=== PATIENT | female | born 1980 | race Asian ===

== ENCOUNTER 2016-12-04 16:40 | Emergency (ER) | payer OTHER ==
[2016-12-04 16:46] VITALS: PULSE 58; RESP 16; TEMP 99.7; O2SAT 97
--- NOTE | 2016-12-04 17:19 | CPEKG ---
Heart Rate: 56 RR Interval: 1071 P-R Interval: 148 QRSD Interval: 94 QT Interval: 504 QTC Interval: 487 P Cro[place]: 34 QRS [place]: -12 T Wave [place]: 19 EKG Severity - BORDERLINE ECG - EKG Impression: SINUS RHYTHM EKG Impression: VENTRICULAR PREMATURE COMPLEX EKG Impression: BORDERLINE PROLONGED QT INTERVAL Electronically Signed By: Martell Fitzgerald 04-Dec-2016 21:12:07
[2016-12-04 17:49] LABS: % IMMATURE GRANULYOCYTES 0.3 % (0.0-1.1); ABSOLUTE IMMATURE GRANULOCYTES 0.02 10^3/uL (0.00-0.10); ADD DIFF? NO; ADD MORPH? NO; ADD SCAN? NO; ATYPICAL LYMPHOCYTE FLAG 0 (0-99); FRAGMENT RBC FLAG 0 (0-99); HEMATOCRIT 38.8 % (38.0-47.0); HEMOGLOBIN 13.1 g/dL (12.6-16.3); LEFT SHIFT FLG 0 (0-99); LIPEMIA HEMOLYSIS FLAG 90 (0-99); MEAN CELL HEMOGLOBIN 28.1 pg (27.9-34.1); MEAN CELL HEMOGLOBIN CONCENTR. 33.8 g/dL (32.4-36.7); MEAN CELL VOLUME 83.1 fL (81.5-99.8); MEAN PLATELET VOLUME 9.6 fL (8.7-11.7); PLATELET CLUMPS FLAG 0 (0-99); PLATELET COUNT 355 10^3/uL (150-400); RED BLOOD CELL COUNT 4.67 10^6/uL (4.18-5.33); RED CELL DISTRIBUTION WIDTH 12.6 % (11.5-15.2)
[2016-12-04 18:11] LABS: ANION GAP 10 mEq/L (8-16); CALCIUM 9.6 mg/dL (8.5-10.4); CARBON DIOXIDE 21 mEq/l (22-31); CHLORIDE 106 mEq/L (97-110); CREATININE 0.9 mg/dL (0.6-1.0); GLOMERULAR FILTRATION RATE > 60; GLUCOSE 107 mg/dL (70-100); MAGNESIUM 1.8 mg/dL (1.6-2.3); POTASSIUM 4.2 mEq/L (3.5-5.2); SODIUM 137 mEq/L (134-144); SPECIMEN HEMOLYSIS 102
--- NOTE | 2016-12-04 18:38 | EDPHY ---
H & P Stated Complaint: palpitations x 2 weeks, dizzy and diarrhea today Time Seen by Provider: 12/04/16 17:19 HPI/ROS: CHIEF COMPLAINT: Palpitations HISTORY OF PRESENT ILLNESS: 36-year-old female history of hypothyroidism arrives by private vehicle complaining of palpitations for the past 2 weeks. She has an upcoming appointment with her primary care provider became to the ER for evaluation as she is concerned about them and works in [employer], lives in [place]. She denies chest pain. Home which he is experiencing the palpitations she feels transiently dyspneic and dizzy however no syncope or near syncope. She denies illicit drug or alcohol use. Denies cigarette use. Denies cocaine or alcohol use. Has been compliant with her levothyroxine. No personal or family history of premature coronary artery disease or unexpected . No vasculopathy. PRIMARY CARE PROVIDER: REVIEW OF SYSTEMS: A ten point review of systems was performed and is negative with the exception of the items mentioned in the HPI PAST MEDICAL & SURGICAL HISTORY: Hypothyroid SOCIAL HISTORY: Nonsmoker no drug use no cocaine use PHYSICAL EXAM (Prior to examination, patient consented to physical exam, hands were washed and my usual and customary physical exam procedures followed) 1) GENERAL: Well-developed, well-nourished, alert and oriented. Appears to be in no acute distress. 2) HEAD: Normocephalic, atraumatic 3) HEENT: Pupils equal, round, reactive to light bilaterally. Sclera anicteric. 4) NECK: Full range of motion, no meningeal signs. No carotid bruit 5) LUNGS: Clear auscultation bilaterally, no wheezes, no rhonchi, no retractions. 6) HEART: Regular rate and rhythm, no murmur, no heave, no gallop. 7) ABDOMEN: No guarding, no rebound, no focal tenderness, negative McBurney's, negative Cunningham's, negative Rovsing's, negative peritoneal sign, 8) MUSCULOSKELETAL: Moving all extremities, no focal areas of tenderness, no obvious trauma. No peripheral edema or discoloration. Negative Homans no palpable cord 9) BACK: No CVA tenderness, no midline vertebral tenderness, no fluctuance, no step-off, no obvious trauma, no visual or palpable abnormality. 10) SKIN: No rash, no petechiae. 11) Psychiatric: Patient is oriented X 3, there is no agitation. DIFFERENTIAL DIAGNOSIS: the in no particular order including but limited to hyperthyroidism, palpitations, AFib - Personal History LMP (Females 10-55): 1-7 Days Ago Current Tetanus/Diphtheria Vaccine: Unsure Current Tetanus Diphtheria and Acellular Pertussis (TDAP): Unsure - Medical/Surgical History Hx Asthma: No Hx Chronic Respiratory Disease: No Hx Diabetes: No Hx Cardiac Disease: No Hx Renal Disease: No Hx Cirrhosis: No Hx Alcoholism: No Hx HIV/AIDS: No Hx Splenectomy or Spleen Trauma: No Other PMH: PVCs - Social History Smoking Status: Never smoked Constitutional: Initial Vital Signs Temperature (C) 37.6 C 12/04/16 16:43 Heart Rate 58 L 12/04/16 16:43 Respiratory Rate 16 12/04/16 16:43 Blood Pressure 141/78 H 12/04/16 16:43 O2 Sat (%) 97 12/04/16 16:43 O2 Delivery Mode Room Air Allergies/Adverse Reactions: No Known Allergies Allergy (Unverified 12/04/16 16:43) Home Medications: Medication Instructions Recorded Levothyroxine 12/04/16 Medical Decision Making - Diagnostics Imaging Results: Imaging Impressions Chest X-Ray 12/04/16 17:29 IMPRESSION: Normal chest x-ray. ED Course/Re-evaluation: This patient has been re-evaluated with serial examinations and case discussed with Dr. Ko Arceo in the ER, secondary supervising physician. Most recent evaluation at 6:45 p.m. She has complains of continued palpitations without syncope or near-syncope, no dyspnea. Doubt pulmonary embolus. Not think that admission or emergent cardiology evaluation is currently indicated. I do not think that starting the patient on beta blockers currently indicated she already has baseline heart rate in the mid 50s. She has upcoming appoint with primary care provider that I recommend she keep. She has been given copies of her laboratory studies and EKG. Given usual customary cardiac precautions instructions. - Data Points Laboratory Results: Laboratory Results 12/04/16 17:40 12/04/16 17:40 12/04/16 12/04/16 17:40 17:40 WBC 7.80 10^3/uL 10^3/uL (3.80-9.50) RBC 4.67 10^6/uL 10^6/uL (4.18-5.33) Hgb 13.1 g/dL g/dL (12.6-16.3) Hct 38.8 % % (38.0-47.0) MCV 83.1 fL fL (81.5-99.8) MCH 28.1 pg pg (27.9-34.1) MCHC 33.8 g/dL g/dL (32.4-36.7) RDW 12.6 % % (11.5-15.2) Plt Count 355 10^3/uL 10^3/uL (150-400) MPV 9.6 fL fL (8.7-11.7) Neut % (Auto) 61.1 % % (39.3-74.2) Lymph % (Auto) 30.1 % % (15.0-45.0) Lee % (Auto) 5.8 % % (4.5-13.0) Eos % (Auto) 2.2 % % (0.6-7.6) Baso % (Auto) 0.5 % % (0.3-1.7) Nucleat RBC Rel Count 0.0 % % (0.0-0.2) Absolute Neuts (auto) 4.77 10^3/uL 10^3/uL (1.70-6.50) Absolute Lymphs (auto) 2.35 10^3/uL 10^3/uL (1.00-3.00) Absolute Monos (auto) 0.45 10^3/uL 10^3/uL (0.30-0.80) Absolute Eos (auto) 0.17 10^3/uL 10^3/uL (0.03-0.40) Absolute Basos (auto) 0.04 10^3/uL 10^3/uL (0.02-0.10) Absolute Nucleated RBC 0.00 10^3/uL 10^3/uL (0-0.01) Immature Gran % 0.3 % % (0.0-1.1) Immature Gran # 0.02 10^3/uL 10^3/uL (0.00-0.10) Sodium 137 mEq/L mEq/L (134-144) Potassium 4.2 mEq/L mEq/L (3.5-5.2) Chloride 106 mEq/L mEq/L (97-110) Carbon Dioxide 21 mEq/l L mEq/l (22-31) Anion Gap 10 mEq/L mEq/L (8-16) BUN 18 mg/dL mg/dL (7-23) Creatinine 0.9 mg/dL mg/dL (0.6-1.0) Estimated GFR > 60 Glucose 107 mg/dL H mg/dL (70-100) Calcium 9.6 mg/dL mg/dL (8.5-10.4) Magnesium 1.8 mg/dL mg/dL (1.6-2.3) TSH 3.770 uIU/mL uIU/mL (0.465-4.680) Specimen Hemolysis 102 Departure - Departure Disposition: Home, Routine, Self-Care Clinical Impression: Heart palpitations Condition: Good Instructions: Palpitations (ED) Additional Instructions: Call 911 if you develop chest pain, fainting or any other symptoms that concern you. Referrals: CORNELIUS TAMAYO [Other] - 2-3 days, call for appt. Valorie Avila MD [Medical Doctor] - 2-3 days, call for appt.
[2016-12-04 19:14] VITALS: BP 120/84
== END 2016-12-04 19:13 | disposition home or self-care (01) ==
DX: R00.2 Palpitations (principal)